=== PATIENT | female | born 1965 | race Caucasian/White ===

== ENCOUNTER 2022-02-14 05:33 | Day surgery (SDC) | payer BC, SELFPAY ==
--- NOTE | 2022-02-10 12:31 | HP.PCM_ITS ---
History and Physical Date of Admission: 02/14/22 Pre-Op History and Physical ? HPI: The patient is a 56 year old female presenting session regarding surgical intervention. Patient has a history of fibroid uterus with one being submucosal. Patient has abnormal uterine bleeding persistent bleeding since October 2021. Patient reports bleeding is light at this time. Patient at this time would like to proceed with surgical intervention with a total laparoscopic hysterectomy bilateral salpingectomy and cystoscopy with a possible ooph orectomy. Patient is not menopausal at this time. For pre-operative visit. She is scheduled for TLH, Bilateral salpingectomy, Cystoscopy possible oophorectomy , for AUB, fibroid uterus 02/14/22 Procedure discussed along with risks, benefits and complications. Other alternatives discussed for management. Consent form signed? Yes. ? ? PAST MEDICAL HISTORY PAST MEDICAL HISTORY Diagnosis Date ? Anemia ? ? Chorioretinitis ? ? OS ? Choroiditis ? ? OS ? Corneal pannus ? ? OS ? GERD (gastroesophageal reflux disease) ? ? Sleep apnea ? ? Tendonitis ? ? ? PAST SURGICAL HISTORY PAST SURGICAL HISTORY Procedure Laterality Date ? NONE ? CURRENT MEDICATIONS Current Outpatient Medications Medication Sig Dispense Refill ? escitalopram oxalate (LEXAPRO) 20 mg tablet Take 1 tablet by mouth once daily. 90 tablet 3 ? prednisoLONE acetate (PRED FORTE, ECONOPRED PLUS) 1 % ophthalmic suspension 1 drop four times a day Left eye 5 mL 2 ? valACYclovir (VALTREX) 1 gram Take 1 tablet by mouth once daily. 30 tablet 11 ? pantoprazole DR (PROTONIX) 40 mg tablet Take 1 tablet by mouth once daily. 90 tablet 3 ? Bepotastine Besilate (BEPREVE) 1.5 % drop Use 1 Drop in both eyes twice daily. ? ? ? ferrous sulfate 325 mg (65 mg iron) tablet Take 1 tablet by mouth twice daily. ? 5 ? Cyanocobalamin 1,000 mcg TbER Take 1 tablet by mouth once daily. ? ? 2 ? medroxyPROGESTERone (PROVERA) 5 mg tablet Take 1 tablet by mouth once daily. (Patient not taking: Reported on 12/30/2021 ) ? ? ? No current facility-administered medications for this visit. ? ? ALLERGIES: Kiwi ? PERSONAL HISTORY: SOCIAL HISTORY Social History ? Tobacco Use ? Smoking status: Never Smoker ? Smokeless tobacco: Never Used Vaping Use ? Vaping Use: Never used Substance Use Topics ? Alcohol use: Not Currently ? Drug use: Never ? FAMILY HISTORY: FAMILY HISTORY FAMILY HISTORY Problem Relation Age of Onset ? No Ocular Disease Father ? ? No Ocular Disease Mother ? ? Macular Degen Other ? ? Blindness No Family History ? ? Detached Retina No Family History ? ? Glaucoma No Family History ? ? ? REVIEW OF SYMPTOMS: negative except as noted above PHYSICAL EXAMINATION: ? VITALS: Blood pressure 132/86, weight 193 lb (87.5 kg), last menstrual period 11/09/2021. ? GENERAL: The patient is well nourished, well hydrated in no acute distress. , The patient is oriented to time, place, and person. NECK: full range of motion LUNGS: Clear to auscultation bilaterally. no wheezes, rhonchi or rales HEART: Regular rate and rhythm, Normal heart sounds and No murmurs or gallops NEURO: alert and oriented x 3 ? IMPRESSION: AUB, Fibroid uterus- failed conservative mgmt ? PLAN: TLH, Bilateral salpingectomy, Cystoscopy, possible oophorectomy ? Pt has been counseled on risks/benefits and alternatives of surgery including but not limited to anesthesia, bleeding, infection, injury to pelvic structures including bowel, bladder, ureters and vessels. Pt wishes to proceed with surgery at this time. ? Consent for blood products ? Pre and post op instructions reviewed Post op meds given per patient request. ? I have reviewed and updated past medical and surgical history, medications and allergies Zeina Marshall MD ?9:20 AM
--- NOTE | 2022-02-13 09:40 | EKG12_ITS ---
Test Reason : PREOP Blood Pressure : / mmHG Vent. Rate : 080 BPM Atrial Rate : 080 BPM P-R Int : 158 ms QRS Dur : 068 ms QT Int : 384 ms P-R-T Axes : 030 043 059 degrees QTc Int : 442 ms Normal sinus rhythm Low voltage QRS Borderline ECG Confirmed by ARSLAN SAWYER, JAYDA ([id number]), video editor HONG BRITO ([id number]) on 02/14/2022 2:21:45 PM Referred By: Zeina Elias Confirmed By:JOSEPH MCDANIELS MD
[2022-02-13 11:07] LABS: Hematocrit 40.6 % (37-47); Mean Corp Hgb Conc 34.5 g/dL (32-36); Mean Corpuscular Hgb 30.4 pg (27.0-32.0); Mean Corpuscular Volume 88.1 fL (81-99); Mean Platelet Vol. 11.1 fl (6.2-12.0); Platelet Count 241 K/mm3 (150-450); RBC Distribution Width CV 12.1 % (11.6-14.6); RBC Distribution Width SD 38.7 fl (35.1-43.9); Red Blood Count 4.61 M/mm3 (4.2-5.4); White Blood Count 5.7 K/mm3 (4.4-11.0)
[2022-02-13 11:27] LABS: Anion Gap 5 (5-15); BUN 11 mg/dL (7-18); BUN/Creat Ratio 13.8 RATIO (10-20); Calcium,Total 9.3 mg/dL (8.5-10.1); Chloride 108 mmol/L (98-107); EST Glomerular Filtration Rate 79 mL/min (>60); Est Glom Filt Rate - Afr Amer 95 mL/min (>60); Glucose 78 mg/dL (74-106); Sodium Level 141 mmol/L (136-145)
[2022-02-14] VITALS (10 sets, daily range): BP systolic 135–153; BP diastolic 73–92; PULSE 52–73; RESP 12–18; TEMP 36.8–37.2; O2SAT 96–100; BMI 29.6
[2022-02-14] MEDS: Celecoxib 200 MG Capsule 400 MG PO (06:26)
[2022-02-14] MEDS: dexAMETHasone 10 MG/ML Vial 8 MG IV (06:26)
[2022-02-14] MEDS: Lactated Ringers 1,000 ML 40 ML IV (06:26)
[2022-02-14] MEDS: Phenazopyridine 95 MG Tablet 190 MG PO (06:26)
[2022-02-14] MEDS: Acetaminophen 500 MG Tablet 1000 MG PO (06:27)
[2022-02-14] MEDS: Gabapentin 600 MG Tablet PO (06:27)
[2022-02-14] MEDS: Scopolamine 1mg/72hr Patch 1 PATCH TD (06:27)
[2022-02-14] MEDS: Enoxaparin 40 MG/0.4 ML Syringe SC (06:27)
[2022-02-14 06:47] LABS: Internal QC Validated? YES +Cl - CLEAR BKGD; Pregnancy, Urine Negative Negative
[2022-02-14 07:11] LABS: Bedside Glucose 109 mg/dL (74-106)
[2022-02-14] MEDS: Cefazolin 2 GM in 0.9% Normal Saline 100 ML IV (07:29)
[2022-02-14] MEDS: Lactated Ringers @ 70 MLS/HR 70 ML IV ×2 (07:30→10:35)
--- NOTE | 2022-02-14 07:30 | HYST_PTH ---
PATIENT: PAVEL HARDING LOC: [facility] [place] U#:[id number] AGE/SX: 56/F ROOM: RE02/14/[address]: Dr. Zeina Elias, MDDOB: 1965 BED: DIS: 02/14/2022 SPEC #: [id number] RECD: 02/14/22 11:05 STATUS: JULIANO QUYNH #: [id number] SCOUT: 02/14/22 07:[address]: Zeina Elias DEPT: SURGICAL PATHOLOGY RECD BY: Angie Jin ENTERED: 02/14/22 11:35 SP TYPE: HYSTERECT OTHR DR: Dr. Reyna Noe MD Tissues: Uterus, NOS Procedures: Surgery Specimen Level V HEADER OPERATION: ERAS, total laparoscopic hysterectomy, salpingectomy PRE-OP DIAGNOSIS: Abnormal uterine bleeding, fibroid uterus TISSUE SUBMITTED: Uterus, cervix, bilateral fallopian tubes MICROSCOPIC DIAGNOSIS Uterus, hysterectomy: Cervix ? minimal chronic inflammation. Endometrium ? weakly proliferative to inactive endometrium. Myometrium ? leiomyomas and adenomyosis. Right and left fallopian tubes ? benign paratubal cysts. AM:isidro 02/17/2022 MICROSCOPIC DESCRIPTION Slides are reviewed. GROSS DESCRIPTION Received in fixative is one container labeled with the patient's name and designated uterus, cervix, bilateral fallopian tubes. The specimen consists of a hysterectomy specimen consisting of uterus with cervix and detached bilateral fallopian tubes. The uterus with cervix weighs 129 gm and measures 10 x 8 x 6 cm. The serosal surface is sargent, glistening. The ectocervical mucosa is unremarkable. The external os is circular in contour. The endocervical canal measures 3 cm in length and the endocervical mucosa is sargent, glistening and unremarkable. The triangular endometrial cavity measures 5.5 cm in length and up to 3 cm in width. The endometrium is sargent, glistening without any mass lesion and measures 0.1 cm in thickness. The endometrial cavity measures up to 4.5 cm in width. Sections of the uterine wall reveal multiple intramural and submucosal nodular masses. The largest mass measures 2.5 cm in greatest dimension. Sections of these masses reveal sargent whorled cut surfaces without areas of hemorrhage, necrosis or cystic degeneration. The uninvolved uterine wall measures up to 2.5 cm in thickness. The fallopian tubes are not identified as right or left and measures 6 cm in length and 0.5 cm in diameter and 7 cm in length and 0.5 cm in diameter. The fimbrial end is identified. A paratubal cyst is noted on one of the fallopian tubes measuring 0.5 cm in greatest dimension. Sections reveal unremarkable cut surfaces. [employer] sections are submitted in 11 cassettes as follows: 1 - anterior cervix, 2 - posterior cervix, 3 & 4 - anterior uterine wall, 5 & 6 - posterior uterine wall, sections also contain the smaller nodular masses, 7 - largest nodular mass, 8 - second largest nodular mass, 9 - third largest nodular mass, 10??one fallopian tube and paratubal cyst, 11 - second fallopian tube. / HALLIE:isidro 02/14/2022 TC:1 CPT: 34077
[2022-02-14] MEDS: Bupivacaine Mpf 0.5% 30 ML VIAL (07:55)
[2022-02-14] MEDS: Ondansetron 4 MG/2 ML Vial IV (08:45)
--- NOTE | 2022-02-14 08:57 | OP.PCM_ITS ---
Problems Associated Problem List Diagnoses (1) Abnormal uterine bleeding (AUB): (2) Fibroid uterus: Report of Operation Date of Procedure: 02/14/22 Pre-Operative Diagnosis: AUB, Fibroid uterus Post-Operative Diagnosis: same Surgery/Procedure Performed:: TLH, Bilateral salpingectomy, Cystoscopy Description of Surgical Findings:: Normal tubes and ovaries Surgeon: Zeina Elias order runner: Shavon Arredondo Type of Anesthesia: General and Local Special Medications: 0.5% marcaine Specimen's removed: uterus, cervix, bilateral tubes Drains: none Estimated Blood Loss (mL): 100 Fluids Replaced: 1100 Description of Procedure: Patient take to OR and prepped and draped in usual sterile fashion in dorsal lithotomy position with her arms tucked in a neurologically safe and neutral position. The uterus sounded to 8.5 cm. The technical specialist uterine manipulator was sutured into place at 12 position and arrington were placed. Attention was turned to the abdomen. All port sites were infiltrated with .5% marcaine before the incisions were made. The anterior abdominal wall was tented up with towel clamps and using a direct entry approach a 5 mm intraumbilical port was placed. Intraperitoneal placement was confirmed with the laparoscope and the pneumoperitoneum was created. The patient was placed in Trendelenburg and 5 mm right and left lower quadrant ports were placed under direct visualization. Air seal rapid insufflator was used. The bowel was swept away. Ovaries appeared normal. The mesosalpinx starting at fimbriated end were grasped, clamped, sealed and transected with the Ligasure. The round ligaments were divided. The anterior peritoneum was dissected down to create the bladder flap with blunt dissection and the LigaSure. The uterine arteries were isolated, clamped, sealed and cut. There was minimal back bleeding from the uterus. Straight bites on uterine artieries performed to drop them off the cuff. The manipulator was used as guide to create colpotomy using monopolar tip of ligasure. once specimen was removed attention was turned to vaginal portion. The specimen was handed off. The cuff was closed with interrupted 0-vicryl figure of 8 sutures. Cystoscopy was performed bilateral ureters were visualized with good efflux. bladder was intact. arrington replaced and sponge stick placed in vagina. The pneumoperitoneum was recreated- small oozing on left side of cuff angle- bovied with good hemostasis- and the cuff and pedicles were hemostatic. Cirilo was placed over cuff and pedicles. The skin incisions were closed with skin glue and 3-0 monocryl in the LLQ port site. The vaginal sweep was completed by me. Grafts/Implants Used: none Grafts/Implants Used: none Procedure Start Time: 07:50 Procedure Stop Time: 09:01 Complications none Admit VTE Documentation VTE Present on Admission: Yes VTE Mechan Device Prophylaxis: SCD's VTE Pharm Prophylaxis ordered?: Yes
--- NOTE | 2022-02-14 10:33 | SUR.PHASEI ---
[employer] MANAG[employer] SPECIALIST NOTIFIED TO UPDATE FAMILY OF PATIENT STILL DROWSY AND MANAGING PAIN. WILL BRING BACK TO ROOM WHEN WAKES UP MORE.
--- NOTE | 2022-02-14 11:13 | EX.PCM.DISCH ---
Discharge Instructions Diet Discharge Diet: No restrictions Activity Discharge Activity: May Not Drive (while taking narcotics. may drive when pain controlled. ) and May Shower Return to work on:: 06/06/21 May shower in (days): 1 May resume sexual activity in: 6-8 weeks Weight Bearing Status: Full weight bearing Lifting Restrictions: 20 Additional Activity Instructions:: NOTHING IN THE VAGINA x 6-8 weeks. Dressing / Incision Call your doctor if your incision/area has: Continuous Slow Oozing, Sudden Increased Bleeding, Increased Pain/ Swelling, Increased Redness, Foul Smelling Discharge and Swelling at the incision site Call your doctor if you observe: Fever of 101 or Higher, Inability to have a bowel movement, Using more than 1 pad per hour and Uncontrolled pain Change Dressing in: leave in place till F/U (you have skin glue over incision sites- do not pick off) Cleanse incision/area with: Soap & Water, Keep Dressing Clean & Dry and - (you may let soap and water run over incision sites and dab dry. ) Follow Up Care Please Follow Up With: Zeina Elias MD When: 2 weeks as scheduled for post op visit Test Results: Test results from this visit will be discussed in further detail at your follow-up appointment, if applicable. Discharge Plan Admission Attending Provider: Zeina Elias Primary Care Provider: Reyna Noe Discharge Orders/Prescriptions Prescriptions: No Action valacyclovir 1 gram tablet See Rx Instructions .ROUTE .COMPLEX RF: 0 cyanocobalamin (vitamin B-12) [Vitamin B-12] 1,000 mcg Tablet 1,000 mcg PO DAILY RF: 0 prednisolone acetate 1 % drops,suspension 1 drp LEFT EYE DAILY RF: 0 ascorbic acid (vitamin C) [Vitamin C] 500 mg Tablet 500 mg PO DAILY RF: 0 pantoprazole 40 mg tablet,delayed release (DR/EC) 40 mg PO DAILY RF: 0 ferrous sulfate 325 mg (65 mg iron) Tablet 325 mg PO DAILY RF: 0 escitalopram oxalate 20 mg tablet 20 mg PO DAILY RF: 0 cholecalciferol (vitamin D3) [Vitamin D3] 125 mcg (5,000 unit) Tablet 125 mcg PO DAILY RF: 0 bepotastine besilate [Bepreve] 1.5 % drops 1 drp RIGHT EYE DAILY RF: 0 Other Ambulatory Orders: ,Urine (Routine) Timeframe: [id number] Facility: [facility] - Location: Laboratory Ordered By: Dr. Zeina Elias Referrals / Follow Up: Reyna Noe MD [Primary Care Provider] - Disposition Disposition (needs filled in before D/C Order can be placed): Home, Self Care
[2022-02-14 12:14] LABS: Hematocrit 40.8 % (37-47); Hemoglobin 14.2 g/dL (12.0-15.0); Mean Corp Hgb Conc 34.8 g/dL (32-36); Mean Corpuscular Hgb 30.9 pg (27.0-32.0); Mean Corpuscular Volume 88.7 fL (81-99); Mean Platelet Vol. 10.7 fl (6.2-12.0); Platelet Count 238 K/mm3 (150-450); RBC Distribution Width CV 12.1 % (11.6-14.6); RBC Distribution Width SD 38.7 fl (35.1-43.9); White Blood Count 10.2 K/mm3 (4.4-11.0)
[2022-02-14] MEDS: HYDROcodone Bitartrate/Apap 5/325 Tablet PO (12:33)
== END 2022-02-14 23:59 | disposition home or self-care (01) ==
LOC: SDC 05:34 → AC 05:35
PROVIDERS: Anesthesiology; PCP Internal Medicine; Referring Provider Obstetrics & Gynecology; Visit Provider Obstetrics & Gynecology
PROC: 0UT94ZZ Resection of Uterus, Percutaneous Endoscopic Approach (ICD-10-PCS; CPT 58571; principal; 2022-02-14 07:10)
DX: D25.0 Submucous leiomyoma of uterus (principal); D25.9 Leiomyoma of uterus, unspecified; N93.9 Abnormal uterine and vaginal bleeding, unspecified; D64.9 Anemia, unspecified; N80.0 Endometriosis of uterus; N83.8 Other noninflammatory disorders of ovary, fallopian tube and broad ligament; F41.9 Anxiety disorder, unspecified; M19.90 Unspecified osteoarthritis, unspecified site; K21.9 Gastro-esophageal reflux disease without esophagitis; Z79.899 Other long term (current) drug therapy
CPT/HCPCS: 58571; 00840; 52000; 36415; 80048; 81025; 82962; 83735; 85027; 86850; 86900; 86901; 87426; 88307; 93005; C9803; J7120; J2405; J3475